=== PATIENT | female | born 1940 | race Caucasian/White ===

== ENCOUNTER → 2018-04-27 | Outpatient (CLI) | payer MEDICARE, BC ==
--- NOTE | 2018-04-28 18:18 | BD ---
EXAMINATION TYPE: Axial Bone Density DATE OF EXAM: 04/27/2018 COMPARISON: NONE CLINICAL HISTORY: 77-year-old female screening for osteoporosis, osteopenia Height: 62 Weight: 138.3 FRAX RISK QUESTIONS: Alcohol (3 or more units per day): no Family History (Parent hip fracture): no Glucocorticoids (More than 3mos): no (Ex: prednisone, prednisolone, methylprednisolone, dexamethasone, and hydrocortisone). History of Fracture in Adulthood: no Secondary Osteoporosis: 1. Type 1 Diabetes: no 2. Hyperthyroidism: no 3. Menopause before 45: yes 4. Malnutrition: no 5. Chronic liver disease: no Rheumatoid Arthritis: no Current Tobacco Use: no RISK FACTORS HISTORY OF: Family History of Osteoporosis: no Active: yes Diet low in dairy products/other sources of calcium: no Postmenopausal woman: age 39 Lost more than 2 inches in height since high school: no Frequent falls: no MEDICATIONS: eye drops Additional History: EXAM MEASUREMENTS: Bone mineral densitometry was performed using the [employer] System. Bone mineral density as measured about the Lumbar spine is: ----- L1-L4(G/cm2): 1.158 T Score Values are as follows: ----- L2: -0.6 ----- L3: 1.4 ----- L4: 0.3 ----- L1-L4: -0.2 Bone mineral density has: increased 0.4 % since study of: 04.24.2016 Bone mineral density about the R hip (g/cm2): 0.843 Bone mineral density about the L hip (g/cm2): 0.891 T Score values are as follows: -----R Neck: -1.4 -----L Neck: -1.1 -----R Total: -1.0 -----L Total: -0.8 Bone mineral density has: increased 2.1 % since study of: 04.24.2016 IMPRESSION: Osteopenia (T Score between -2.5 and -1). There is slightly increased risk of fracture and the patient may be considered for treatment. Re-Screen 2-5 years. NOTE: T-SCORE=SD OF THE YOUNG ADULT MEAN.
== END | disposition home or self-care (01) ==
LOC: RADBDWWP 15:14
PROVIDERS: ATTEND Obstetrics & Gynecology
DX: Z13.820 Encounter for screening for osteoporosis (principal); M85.80 Other specified disorders of bone density and structure, unspecified site
CPT/HCPCS: 77080

== ENCOUNTER → 2018-04-28 | Outpatient (CLI) | payer MEDICARE, BC ==
--- NOTE | 2018-04-29 14:08 | MM ---
Reason for exam: screening (asymptomatic). Last mammogram was performed 1 year ago. History: Patient is postmenopausal and has history of other cancer at age 49. Physical Findings: A clinical breast exam by your physician is recommended on an annual basis and results should be correlated with mammographic findings. MG 3D Screening Mammo W/Cad Bilateral CC and MLO view(s) were taken. Prior study comparison: April 26, 2017, bilateral MG 3d screening mammo w/cad. April 24, 2016, bilateral MG 3d screening mammo w/cad. The breast tissue is almost entirely fat. Asymmetric breast tissue greaster in the right breast. No significant changes when compared with prior studies. ASSESSMENT: Benign, BI-RAD 2 RECOMMENDATION: Routine screening mammogram of both breasts in 1 year.
== END | disposition home or self-care (01) ==
LOC: RADMAMWWP 06:46
PROVIDERS: ATTEND Obstetrics & Gynecology
DX: Z12.31 Encounter for screening mammogram for malignant neoplasm of breast (principal)
CPT/HCPCS: 77063; 77067

== ENCOUNTER → 2019-04-25 | Outpatient (CLI) | payer MEDICARE, BC ==
--- NOTE | 2019-04-25 10:38 | ECHOF ---
Referral Reason:I49.1 Premature Atrial Contraction MEASUREMENTS -------- HEIGHT: 157.5 cm WEIGHT: 61.7 kg BP: RVIDd: 3.2 cm (< 3.3) IVSd: 0.8 cm (0.6 - 1.1) LVIDd: 5.3 cm (3.9 - 5.3) LVPWd: 1.1 cm (0.6 - 1.1) IVSs: 1.1 cm LVIDs: 4.4 cm LVPWs: 1.3 cm LAESV Index (A-L): 41.42 ml/m IVSd: 1.0 cm (0.6 - 1.1) LVIDd: 4.7 cm (3.9 - 5.3) LVPWd: 1.1 cm (0.6 - 1.1) IVSs: 1.2 cm LVIDs: 4.1 cm LVPWs: 1.4 cm EDV(Teich): 102 ml ESV(Teich): 74 ml EF(Teich): 27 % %FS: 13 % SV(Teich): 28 ml Ao Diam: 3.0 cm (2.0 - 3.7) AV Cusp: 2.3 cm (1.5 - 2.6) LA Diam: 3.5 cm (2.7 - 3.8) MV EXCURSION: 13.189 mm (> 18.000) MV EF SLOPE: 32 mm/s (70 - 150) EPSS: 1.1 cm MV E Manuel: 0.82 m/s MV DecT: 395 ms MV A Manuel: 0.43 m/s MV E/A Ratio: 1.92 AR PHT: 539 ms RAP: 5.00 mmHg RVSP: 27.57 mmHg TAPSE: 1.73 cm FINDINGS -------- Sinus rhythm with extra systolic beats. This was a technically adequate study. The left ventricular size is normal. There is mild concentric left ventricular hypertrophy. Overa ll left ventricular systolic function is moderately impaired with, an EF between 35 - 40 %. Increas ed LAP. Grade 2 Diastolic Dysfuntion. Basal inferior LV wall motion is hypokinetic. Basal infero septal LV wall motion is hypokinetic. Mid inferior LV wall motion is hypokinetic. Mid inferosep nader LV wall motion is hypokinetic. The right ventricle is normal in size. LA is severely dilated >40 ml/m2 The right atrial size is normal. Aortic valve is trileaflet and is mildly thickened. There is ioay-hc-aglwhjfy aortic regurgitation. The mitral valve is normal. Exit-gm-qzytaslu mitral regurgitation is present. The tricuspid valve appears structurally normal. Mild tricuspid regurgitation present. Right vent ricular systolic pressure is normal at < 35 mmHg. Trace/mild (physiologic) pulmonic regurgitation. The aortic root size is normal. Normal inferior vena cava with normal inspiratory collapse consistent with estimated right atrial pre ssure of 5 mmHg. The pulmonary veins were not recorded. There is no pericardial effusion. CONCLUSIONS -------- 1. Sinus rhythm with extra systolic beats. 2. This was a technically adequate study. 3. The left ventricular size is normal. 4. There is mild concentric left ventricular hypertrophy. 5. Overall left ventricular systolic function is moderately impaired with, an EF between 35 - 40 %. 6. Increased LAP. Grade 2 Diastolic Dysfuntion. 7. Basal inferior LV wall motion is hypokinetic. 8. Basal inferoseptal LV wall motion is hypokinetic. 9. Mid inferior LV wall motion is hypokinetic. 10. Mid inferoseptal LV wall motion is hypokinetic. 11. LA is severely dilated >40 ml/m2 12. Aortic valve is trileaflet and is mildly thickened. 13. There is rjtv-gu-ohcfzfza aortic regurgitation. 14. The mitral valve is normal. 15. Fffb-sx-nkapmvuf mitral regurgitation is present. 16. The tricuspid valve appears structurally normal. 17. Mild tricuspid regurgitation present. 18. Right ventricular systolic pressure is normal at < 35 mmHg. 19. Trace/mild (physiologic) pulmonic regurgitation. 20. The aortic root size is normal. 21. Normal inferior vena cava with normal inspiratory collapse consistent with estimated right atrial pressure of 5 mmHg. 22. The pulmonary veins were not recorded. 23. There is no pericardial effusion. LOCK TENDER: Kassandra Mathew RDCS
== END | disposition home or self-care (01) ==
LOC: RADECHMAIN 08:09
PROVIDERS: ATTEND Internal Medicine
DX: I08.3 Combined rheumatic disorders of mitral, aortic and tricuspid valves (principal)
CPT/HCPCS: 93306

== ENCOUNTER → 2019-05-08 | Outpatient (CLI) | payer MEDICARE, BC ==
--- NOTE | 2019-05-10 10:51 | MM ---
Reason for exam: screening (asymptomatic). Last mammogram was performed 1 year ago. History: Patient is postmenopausal and has history of other cancer at age 49. Physical Findings: A clinical breast exam by your physician is recommended on an annual basis and results should be correlated with mammographic findings. MG 3D Screening Mammo W/Cad Bilateral CC and MLO view(s) were taken. Prior study comparison: April 28, 2018, bilateral MG 3d screening mammo w/cad. April 26, 2017, bilateral MG 3d screening mammo w/cad. There are scattered fibroglandular densities. No significant changes when compared with prior studies. ASSESSMENT: Negative, BI-RAD 1 RECOMMENDATION: Routine screening mammogram of both breasts in 1 year.
== END | disposition home or self-care (01) ==
LOC: RADMAMWWP 07:04
PROVIDERS: ATTEND Obstetrics & Gynecology
DX: Z12.31 Encounter for screening mammogram for malignant neoplasm of breast (principal)
CPT/HCPCS: 77063; 77067

== ENCOUNTER → 2020-11-25 | Outpatient (CLI) | payer MEDICARE ==
--- NOTE | 2020-11-25 12:01 | BD ---
EXAMINATION TYPE: Axial Bone Density DATE OF EXAM: 11/25/2020 COMPARISON: 04.27.2018 CLINICAL HISTORY: 80 YR OLD FEMALE....ICD-10 CODE: M85.859 OSTEOPENIA OF HIP Height: 61.5 Weight: 137 FRAX RISK QUESTIONS: NOTHING TO NOTE HERE RISK FACTORS HISTORY OF: Postmenopausal woman: YES AT AGE 47 YRS Hyperparathyroidism: NO Adrenal Insufficiency: NO MEDICATIONS: Additional Medications: VIT D AND CALCIUM, BP MEDS, Additional History: HYPERTENSION, EXAM MEASUREMENTS: Bone mineral densitometry was performed using the [employer] System. Bone mineral density as measured about the Lumbar spine is: ----- L1-L4(G/cm2): 1.085 T Score Values are as follows: ----- L1: -1.6 ----- L2: -1.2 ----- L3: -0.2 ----- L4: -0.1 ----- L1-L4: -0.8 Bone mineral density has: Decreased -8.5% since study of: 04.27.2018 Bone mineral density about the R hip (g/cm2): 0.895 Bone mineral density about the L hip (g/cm2): 0.880 T Score values are as follows: -----R Neck: -1.5 -----L Neck: -1.1 -----R Total: -0.9 -----L Total: -1.0 Bone mineral density has: Decreased -0.9% since study of: 04.27.2018 FRAX%s: THERE IS A 19.8% CHANCE FOR A MAJOR OSTEOPOROTIC FX AND A 4.6% FOR HIP.......PROBABILITY FO R FX IN 10 YRS TIME IMPRESSION: No evidence for osteoporosis or osteopenia. NOTE: T-SCORE=SD OF THE YOUNG ADULT MEAN.
--- NOTE | 2020-11-26 08:52 | MM ---
Reason for exam: screening (asymptomatic). Last mammogram was performed 1 year and 7 months ago. History: Patient is postmenopausal and has history of other cancer at age 49. Physical Findings: A clinical breast exam by your physician is recommended on an annual basis and results should be correlated with mammographic findings. MG 3D Screening Mammo W/Cad Bilateral CC and MLO view(s) were taken. Prior study comparison: May 08, 2019, bilateral MG 3d screening mammo w/cad. April 28, 2018, bilateral MG 3d screening mammo w/cad. There are scattered fibroglandular densities. There are benign appearing round calcifications bilaterally. There is no discrete abnormality. ASSESSMENT: Benign, BI-RAD 2 RECOMMENDATION: Routine screening mammogram of both breasts in 1 year.
== END | disposition home or self-care (01) ==
LOC: RADMAMWWP 08:58
PROVIDERS: ATTEND Obstetrics & Gynecology
DX: Z12.31 Encounter for screening mammogram for malignant neoplasm of breast (principal); M85.859 Other specified disorders of bone density and structure, unspecified thigh; Z78.0 Asymptomatic menopausal state; Z13.820 Encounter for screening for osteoporosis
CPT/HCPCS: 77063; 77067; 77080

== ENCOUNTER → 2022-01-05 | Outpatient (CLI) | payer MEDICARE ==
--- NOTE | 2022-01-06 19:32 | MM ---
Reason for Exam: Screening (asymptomatic). Last mammogram was performed 1 year(s) and 2 month(s) ago. Patient History: Menarche at age 11. First Full-Term at age 19. Postmenopausal. Patient has history of breast feeding. Risk Values: Joan 5 year model risk: 1.4%. NCI Lifetime model risk: 1.9%. Prior Study Comparison: 04/28/2018 Bilateral Screening Mammogram, [facility]. 05/08/2019 Bilateral Screening Mammogram, [facility]. 11/25/2020 Bilateral Screening Mammogram, [facility]. Tissue Density: The breast tissue is almost entirely fat. Findings: Analyzed By CAD. No significant change from prior exams. Overall Assessment: Negative, BI-RAD 1 Management: Screening Mammogram of both breasts in 1 year. A clinical breast exam by your physician is recommended on an annual basis and results should be correlated with mammographic findings. Also, the patient should continue monthly self breast exams. Electronically signed and approved by: Antonio Tenorio M.D. Radiologist
== END | disposition home or self-care (01) ==
LOC: RADMAMWWP 10:50
PROVIDERS: ATTEND Obstetrics & Gynecology
DX: Z12.31 Encounter for screening mammogram for malignant neoplasm of breast (principal); Z78.0 Asymptomatic menopausal state
CPT/HCPCS: 77063; 77067

== ENCOUNTER → 2022-01-29 | Outpatient (CLI) | payer MEDICARE ==
--- NOTE | 2022-01-29 09:15 | BD ---
EXAMINATION TYPE: Axial Bone Density DATE OF EXAM: 01/29/2022 COMPARISON: NONE CLINICAL HISTORY: 81 year old Female. ICD-10 CODE: M85.88 DISORDER OF BONE DENSITY, OSTEOPENIA Height: 62 Weight: 137.0 FRAX RISK QUESTIONS: Alcohol (3 or more units per day): no Family History (Parent hip fracture): no Glucocorticoids (More than 3mos): no (Ex: prednisone, prednisolone, methylprednisolone, dexamethasone, and hydrocortisone). History of Fracture in Adulthood: no Secondary Osteoporosis: 1. Type 1 Diabetes: no 2. Hyperthyroidism: no 3. Menopause before 45: no 4. Malnutrition: no 5. Chronic liver disease: no Rheumatoid Arthritis: no Current Tobacco Use: no RISK FACTORS HISTORY OF: Surgery to Spine/Hip(right/left)/Wrist (right/left): no Family History of Osteoporosis: no Active: yes Diet low in dairy products/other sources of calcium: no Postmenopausal woman: yes Lost more than 2 inches in height since high school: yes MEDICATIONS: vitamins Additional History: EXAM MEASUREMENTS: Bone mineral densitometry was performed using the [employer] System. Bone mineral density as measured about the Lumbar spine is: ----- L1-L4(G/cm2): 1.229 T Score Values are as follows: ----- L1: -1.5 ----- L2: -01 ----- L3: 1.8 ----- L4: 1.0 ----- L1-L4: 0.4 Bone mineral density has: increased 13.3 % since study of: 11.25.2020 Bone mineral density about the R hip (g/cm2): 0.815 Bone mineral density about the L hip (g/cm2): 0.850 T Score values are as follows: -----R Neck: -1.6 -----L Neck: -1.4 -----R Total: -1.2 -----L Total: -1.1 Bone mineral density has: decreased -2.8 % since study of: 11.25.2020 FRAX%s: The graph provided illustrates a 14.3% chance for a major osteoporotic fx and a 3.9% chance f or the hips probability for fx in 10 years time. IMPRESSION: Osteopenia bilateral hips NOTE: T-SCORE=SD OF THE YOUNG ADULT MEAN.
== END | disposition home or self-care (01) ==
LOC: RADBDWWP 07:57
PROVIDERS: ATTEND Obstetrics & Gynecology
DX: M85.89 Other specified disorders of bone density and structure, multiple sites (principal)
CPT/HCPCS: 77080

== ENCOUNTER → 2023-01-06 | Outpatient (CLI) | payer MEDICARE ==
--- NOTE | 2023-01-07 08:16 | MM ---
Reason for Exam: Screening (asymptomatic). Last screening mammogram was performed 12 month(s) ago. Patient History: Menarche at age 11. First Full-Term at age 19. Postmenopausal. Patient has history of breast feeding. Risk Values: Joan 5 year model risk: 1.3%. NCI Lifetime model risk: 1.7%. Prior Study Comparison: 04/26/2017 Bilateral Screening Mammogram, [facility]. 04/28/2018 Bilateral Screening Mammogram, [facility]. 05/08/2019 Bilateral Screening Mammogram, [facility]. 11/25/2020 Bilateral Screening Mammogram, [facility]. 01/05/2022 Bilateral MG 3D screening mammo w/cad, [facility]. Tissue Density: There are scattered fibroglandular densities. Findings: Analyzed By CAD. There is no suspicious group of microcalcifications or new suspicious mass in either breast. Benign-appearing round calcifications within both breasts. Overall Assessment: Benign, BI-RAD 2 Management: Screening Mammogram of both breasts in 1 year. A clinical breast exam by your physician is recommended on an annual basis and results should be correlated with mammographic findings. Note on Joan scores and lifetime risk: 1. A Joan score greater than 3% is considered moderate risk. If this is the case, consider specialist referral to assess eligibility for a risk reducing agent. If overall lifetime risk for the development of breast cancer is 20% or higher, the patient may qualify for future screening with alternating mammogram and breast MRI. Electronically signed and approved by: Peter Romero D.O.
== END | disposition home or self-care (01) ==
LOC: RADMAMWWP 06:53
PROVIDERS: ATTEND Obstetrics & Gynecology
DX: Z12.31 Encounter for screening mammogram for malignant neoplasm of breast (principal); Z78.0 Asymptomatic menopausal state
CPT/HCPCS: 77063; 77067

== ENCOUNTER → 2024-01-11 | Outpatient (CLI) | payer MEDICARE ==
[2024-01-11 10:27] VITALS: BP 166/71; PULSE 59; RESP 16; TEMP 98.2
--- NOTE | 2024-01-11 11:17 | P.HPOB ---
History of Present Illness H&P Date: 01/11/24 Chief Complaint: Patient is here for her routine gynecologic exam. This is an 83-year-old G4, P4 with an LMP of 1983. Patient is here to establish with this office. It has been about 1 year since her last well woman examination. She previously saw Dr. Sandy for her gynecologic care. She states Dr. Sandy discontinued doing Pap smears about 4 years ago. Denies any history of cervical problems or Pap smear problems. She states she has had gynecologic exams regularly for many years. Review of Systems The patient's weight has been stable over the last year. She denies respiratory, cardiac, or G.I. problems. Past Medical History Past Medical History: Hyperlipidemia, Hypertension, Renal Disease Additional Past Medical History / Comment(s): glaucoma. Irregular heart rhythm ( Dr. Diez-home health cna), osteopenia, and chronic kidney disease. 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 History of Any Multi-Drug Resistant Organisms: None Reported Additional Past Surgical History / Comment(s): Cataract surgery, D&C. Colonoscopy. Past Psychological History: No Psychological Hx Reported Smoking Status: Never smoker Past Alcohol Use History: Occasional (1 drink per month.) Past Drug Use History: None Reported Additional History: She has been since 1957 and does not work outside of the home. She is not sexually active. - Past Family History Mother Family Medical History: Hypertension Additional Family Medical History / Comment(s): . Father Additional Family Medical History / Comment(s): Peripheral neuropathy. . Brother(s) Additional Family Medical History / Comment(s): Peripheral neuropathy. Medications and Allergies Home Medications Medication Instructions Recorded Confirmed Type Bimatoprost [Lumigan 0.01% Ophth 1 drop BOTH EYES DAILY 02/15/16 01/11/24 History Soln] Hydrocortisone Cream 1 applic TOPICAL BID #1 tube 02/15/16 01/11/24 Rx [Hydrocortisone 2.5% Cream] Atorvastatin [Lipitor] 20 mg PO DAILY 01/11/24 01/11/24 History Calcium Carbonate [Calcium] 600 mg PO DAILY 01/11/24 01/11/24 History Cholecalciferol [Vitamin D3 (25 25 mcg PO DAILY 01/11/24 01/11/24 History Mcg = 1000 Iu)] Dapagliflozin Propanediol [Farxiga] 10 mg PO DAILY 01/11/24 01/11/24 History Metoprolol Succinate (ER) [Toprol 25 mg PO DAILY 01/11/24 01/11/24 History XL] lisinopriL [Zestril] 20 mg PO DAILY 01/11/24 01/11/24 History Allergies Allergy/AdvReac Type Severity Reaction Status Date / Time meperidine HCl [From Demerol] Allergy Unknown Verified 01/11/24 10:18 Sulfa (Sulfonamide Allergy Unknown Verified 01/11/24 10:18 Antibiotics) Exam Vital Signs Temp Pulse Resp BP Pulse Ox 01/11/24 10:25 98.2 F 59 L 16 166/71 97 Intake and Output 01/10/24 01/11/24 01/11/24 22:59 06:59 14:59 Other: Weight 60.328 kg Height 5 feet 2 inches, weight 133 pounds, BMI 24.3. This is a well-developed well-nourished white female who is alert and oriented times 3 in no acute distress. HEENT: Within normal limits. NECK: Supple without mass or thyromegaly. CHEST AND LUNGS: Clear to auscultation. HEART: Regular rate with irregularly irregular rhythm. BREASTS: Are without mass or discharge. AXILLARY EXAM: Negative for adenopathy. BACK: Negative for CVA tenderness. ABDOMEN: Soft, nontender, without palpable masses. PELVIC EXAM: Normal external genitalia with moderate atrophy. Cervix and vagina appear normal with mild to moderate atrophy. There is no unusual discharge. There is no evidence of prolapse. The uterus is midposition, nongravid size and nontender. There are no palpable adnexal masses or tenderness. RECTAL EXAM: Rectovaginal exam is negative for mass or tenderness and is negative for occult blood. EXTREMITIES: Nontender. IMPRESSION: 1. 83-year-old menopausal female with normal gynecologic exam. 2. No history of cervical neoplasia with adequate screening in the past per the patient. 3. History of osteopenia based on her 01/29/2022 bone density test. 4. Elevated blood pressure with history of chronic hypertension. PLAN: 1. Pap smear was performed. If this is negative we will plan on discontinuing Pap smears based on her age and her given history. She states she will try to get records from Dr. Sandy regarding the last 10 years of Pap smears that she did have through Dr. Sandy. 2. Self breast awareness was discussed with the patient. We have also discussed symptoms associated with inflammatory breast cancer. 3. Screening mammogram is scheduled for 01/31/2024. She has an order slip for this from her PCP. 4. Osteoporosis prevention was discussed. I have stressed the importance of adequate calcium, vitamin D and regular exercise. Recommended amounts of calcium and vitamin D were also discussed. She is planning to do a bone density test on 01/31/2024 and has an order slip for it. 5. Colorectal cancer screening was discussed with the patient. She will check to see with her PCP when and if she will be due for another colonoscopy. She is uncertain when her last one was done. 6. We have discussed her elevated blood pressure. Have stressed the importance of keeping this under control. She will check her own blood pressure on a regular basis since she does have a blood pressure cuff at home. She will follow-up with her PCP and home health cna for blood pressure elevations. 7. She was advised to return in one year for her annual well woman exam.
== END ==
LOC: WWCWWP 09:51
PROVIDERS: ATTEND Obstetrics & Gynecology
DX: Z01.419 Encounter for gynecological examination (general) (routine) without abnormal findings (principal); M85.80 Other specified disorders of bone density and structure, unspecified site; I12.9 Hypertensive chronic kidney disease with stage 1 through stage 4 chronic kidney disease, or unspecified chronic kidney disease; N18.9 Chronic kidney disease, unspecified; Z78.0 Asymptomatic menopausal state; Z88.2 Allergy status to sulfonamides; Z88.5 Allergy status to narcotic agent; Z79.899 Other long term (current) drug therapy

== ENCOUNTER → 2024-01-31 | Outpatient (CLI) | payer MEDICARE ==
--- NOTE | 2024-02-01 09:24 | MM ---
Reason for Exam: Screening (asymptomatic). Last mammogram was performed 1 year(s) and 1 month(s) ago. Patient History: Menarche at age 11. First Full-Term at age 19. Postmenopausal. Patient has history of breast feeding. Risk Values: Joan 5 year model risk: 1.3%. NCI Lifetime model risk: 1.4%. Prior Study Comparison: 11/25/2020 Bilateral Screening Mammogram, [facility]. 01/05/2022 Bilateral MG 3D screening mammo w/cad, [facility]. 01/06/2023 Bilateral MG 3D screening mammo w/cad, [facility]. Tissue Density: There are scattered areas of fibroglandular density. Findings: Analyzed By CAD. There is no suspicious group of microcalcifications or new suspicious mass in either breast. Overall Assessment: Negative, BI-RAD 1 Management: Screening Mammogram of both breasts in 1 year. . Patient should continue monthly self-breast exams. A clinical breast exam by your physician is recommended on an annual basis. This exam should not preclude additional follow-up of suspicious palpable abnormalities. Note on Joan scores and lifetime risk: 1. A Joan score greater than 3% is considered moderate risk. If this is the case, consider specialist referral to assess eligibility for a risk reducing agent. 2. If overall lifetime risk for the development of breast cancer is 20% or higher, the patient may qualify for future screening with alternating mammogram and breast MRI. Electronically signed and approved by: Antonio Tenorio M.D. Radiologist
--- NOTE | 2024-02-01 13:42 | BD ---
EXAMINATION TYPE: Axial Bone Density DATE OF EXAM: 01/31/2024 CLINICAL HISTORY: 83 years old Female. ICD-10 CODE: M81.0 SCREENING Height: 61 Weight: 131.2 FRAX RISK QUESTIONS: Alcohol (3 or more units per day): no Family History (Parent hip fracture): no Glucocorticoids (More than 3mos): no (Ex: prednisone, prednisolone, methylprednisolone, dexamethasone, and hydrocortisone). History of Fracture in Adulthood: no Secondary Osteoporosis: 1. Type 1 Diabetes: no 2. Hyperthyroidism: no 3. Menopause before 45: no 4. Malnutrition: no 5. Chronic liver disease: no Rheumatoid Arthritis: no Current Tobacco Use: no RISK FACTORS HISTORY OF: Surgery to Spine/Hip(right/left)/Wrist (right/left): no EXAM MEASUREMENTS: Bone mineral densitometry was performed using the [employer] System. Bone mineral density as measured about the Lumbar spine is: ----- L1-L4(G/cm2): 1.227 T Score Values are as follows: ----- L1: -1.5 ----- L2: -0.1 ----- L3: 1.7 ----- L4: 1.1 ----- L1-L4: 0.4 Z Score Values are as follows: ----- L1: 0.5 ----- L2: 2.0 ----- L3: 3.8 ----- L4: 3.2 ----- L1-L4: 2.5 Bone mineral density has: decreased -0.2 % since study of: 01.29.2022 Bone mineral density about the R hip (g/cm2): 0.844 Bone mineral density about the L hip (g/cm2): 0.852 T Score values are as follows: -----R Neck: -1.7 -----L Neck: -1.4 -----R Total: -1.3 -----L Total: -1.2 Z Score values are as follows: -----R Neck: 0.8 -----L Neck: 1.0 -----R Total: 1.1 -----L Total: 1.1 Bone mineral density has: decreased -1.7 % since study of: 01.29.2022 FRAX%s: The graph provided illustrates a 14.9% chance for a major osteoporotic fx and a 4.3% chance f or the hips probability for fx in 10 years time. IMPRESSION: Osteopenia (T Score between -2.5 and -1). There is slightly increased risk of fracture and the patient may be considered for treatment. Re-Screen 2-5 years. NOTE: T-SCORE=SD OF THE YOUNG ADULT MEAN.
== END | disposition home or self-care (01) ==
LOC: RADBDWWP 14:53
PROVIDERS: ATTEND Internal Medicine
DX: Z12.31 Encounter for screening mammogram for malignant neoplasm of breast (principal); M85.88 Other specified disorders of bone density and structure, other site; Z78.0 Asymptomatic menopausal state
CPT/HCPCS: 77063; 77067; 77080

== ENCOUNTER → 2025-01-31 | Outpatient (CLI) | payer MEDICARE ==
[2025-01-31 08:34] VITALS: BP 146/64; PULSE 77; RESP 17; TEMP 97.8
--- NOTE | 2025-01-31 09:03 | MM ---
Reason for Exam: Screening (asymptomatic). Last screening mammogram was performed 12 month(s) ago. Patient History: Menarche at age 11. First Full-Term at age 19. Postmenopausal. Patient has history of breast feeding. Risk Values: Joan 5 year model risk: 1.1%. NCI Lifetime model risk: 1.1%. Prior Study Comparison: 04/28/2018 Bilateral Screening Mammogram, [facility]. 05/08/2019 Bilateral Screening Mammogram, [facility]. 11/25/2020 Bilateral Screening Mammogram, [facility]. 01/05/2022 Bilateral MG 3D screening mammo w/cad, [facility]. 01/06/2023 Bilateral MG 3D screening mammo w/cad, [facility]. 01/31/2024 Bilateral MG 3D screening mammo w/cad, [facility]. Tissue Density: There are scattered areas of fibroglandular density. Findings: Analyzed By CAD. There is no suspicious group of microcalcifications or new suspicious mass in either breast. Overall Assessment: Negative, BI-RAD 1 Management: Screening Mammogram of both breasts in 1 year. Patient should continue monthly self-breast exams. A clinical breast exam by your physician is recommended on an annual basis. This exam should not preclude additional follow-up of suspicious palpable abnormalities. Note on Joan scores and lifetime risk: 1. A Joan score greater than 3% is considered moderate risk. If this is the case, consider specialist referral to assess eligibility for a risk reducing agent. 2. If overall lifetime risk for the development of breast cancer is 20% or higher, the patient may qualify for future screening with alternating mammogram and breast MRI. [facility], , 01/31/2025 9:00 AM. Electronically signed and approved by: Antonio Tenorio M.D. Radiologist
--- NOTE | 2025-01-31 09:07 | P.HPOB ---
History of Present Illness H&P Date: 01/31/25 Chief Complaint: The patient is here for her routine gynecologic exam and ma mmogram. This is an 84-year-old G4, P4 with an LMP of 1983. The patient is without gynecologic complaints and denies any postmenopausal bleeding. Review of Systems The patient's weight has been stable over the last year. She denies respiratory, cardiac, or G.I. problems. Past Medical History Past Medical History: Hyperlipidemia, Hypertension, Renal Disease Additional Past Medical History / Comment(s): glaucoma. Irregular heart rhythm (Dr. Diez-bracer), osteopenia, and chronic kidney disease. 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 History of Any Multi-Drug Resistant Organisms: None Reported Past Surgical History: No Surgical Hx Reported Additional Past Surgical History / Comment(s): Cataract surgery, D&C. Colonoscopy. Past Psychological History: No Psychological Hx Reported Smoking Status: Never smoker Past Alcohol Use History: Occasional (1-2 drinks per week.) Past Drug Use History: None Reported Additional History: She has been since 1957 and is not sexually active. She does not work outside of the home. She spends much of the winter in [place]. - Past Family History Mother Family Medical History: Hypertension Additional Family Medical History / Comment(s): . Father Additional Family Medical History / Comment(s): Peripheral neuropathy. . Brother(s) Additional Family Medical History / Comment(s): Peripheral neuropathy. Medications and Allergies Home Medications Medication Instructions Recorded Confirmed Type Bimatoprost [[place] 0.01% Ophth 1 drop BOTH EYES DAILY 02/15/16 01/31/25 History Soln] Hydrocortisone Cream 1 applic TOPICAL BID #1 tube 02/15/16 01/31/25 Rx [Hydrocortisone 2.5% Cream] Atorvastatin [Lipitor] 20 mg PO DAILY 01/11/24 01/31/25 History Calcium Carbonate [Calcium] 600 mg PO DAILY 01/11/24 01/31/25 History Cholecalciferol [Vitamin D3 (25 25 mcg PO DAILY 01/11/24 01/31/25 History Mcg = 1000 Iu)] Dapagliflozin Propanediol [Farxiga] 10 mg PO DAILY 01/11/24 01/31/25 History Metoprolol Succinate (ER) [Toprol 25 mg PO DAILY 01/11/24 01/31/25 History XL] lisinopriL [Zestril] 20 mg PO DAILY 01/11/24 01/31/25 History Allergies Allergy/AdvReac Type Severity Reaction Status Date / Time meperidine HCl [From Demerol] Allergy Unknown Verified 01/31/25 08:29 Sulfa (Sulfonamide Allergy Unknown Verified 01/31/25 08:29 Antibiotics) Exam Vital Signs Temp Pulse Resp BP Pulse Ox 01/31/25 08:29 97.8 F 77 17 146/64 99 Intake and Output 01/30/25 01/31/25 01/31/25 22:59 06:59 14:59 Other: Weight 59.421 kg Height 5 feet 2 inches, weight 131 pounds, BMI 24.0. This is a well-developed well-nourished white female who is alert and oriented times 3 in no acute distress. HEENT: Within normal limits. NECK: Supple without mass or thyromegaly. CHEST AND LUNGS: Clear to auscultation. HEART: Regular rate with irregular rhythm (known to patient and bracer). BREASTS: Are without mass or discharge. AXILLARY EXAM: Negative for adenopathy. BACK: Negative for CVA tenderness. ABDOMEN: Soft, nontender, without palpable masses. PELVIC EXAM: Normal external genitalia with moderate atrophy. Cervix and vagina appear normal with moderate atrophy. There is no unusual discharge. There is no evidence of prolapse. The uterus is midposition, nongravid size and nontender. There are no palpable adnexal masses or tenderness. RECTAL EXAM: Rectovaginal exam is negative for mass or tenderness and is negative for occult blood. EXTREMITIES: Nontender. IMPRESSION: 1. 84-year-old menopausal female with normal gynecologic exam. 2. History of osteopenia status post several years use of Boniva and alendronate for an uncertain number of years. PLAN: 1. Pap smears have been discontinued. 2. Self breast awareness was discussed with the patient. We have also discussed symptoms associated with inflammatory breast cancer. 3. Screening mammogram was done today. 4. Osteoporosis prevention was discussed. I have stressed the importance of adequate calcium, vitamin D and regular exercise. Recommended amounts of calcium and vitamin D were also discussed. Plan on repeating the bone density test in 1 year. 5. Colorectal cancer screening has been done with Cologuard testing through her PCP. 6. She was advised to return in one year for her annual well woman exam.
== END | disposition home or self-care (01) ==
LOC: RADMAMWWP 08:00
PROVIDERS: ATTEND Obstetrics & Gynecology
DX: Z12.31 Encounter for screening mammogram for malignant neoplasm of breast (principal); R92.323 Mammographic fibroglandular density, bilateral breasts; Z78.0 Asymptomatic menopausal state
CPT/HCPCS: 77063; 77067